=== PATIENT | female | born 1955 | race Caucasian/White ===

== ENCOUNTER 2017-04-04 10:08 | Observation (INO) | payer OTHER ==
[2017-04-04] VITALS (13 sets, daily range): BP systolic 117–145; BP diastolic 60–81; PULSE 68–96; RESP 18–26; Ht 154.9 cm; Wt 69.0 kg
[~2017-04-04] VITALS: Ht 154.9 cm; Wt 69.0 kg
[~2017-04-04 10:08] MED LIST: SEVOFLURANE 15 MIN ONE
[2017-04-04] MEDS ORDERED: METOCLOPRAMIDE 10 MG INJ IV PRN (12:30)
[2017-04-04] MEDS ORDERED: OXYCODONE/ACETAMINOPHEN (5/325) TAB PO PRN ×2 (12:30)
[2017-04-04] MEDS ORDERED: LABETALOL HCL 20MG INJ IV PRN (12:30)
[2017-04-04] MEDS ORDERED: HYDROmorphONE (0.2 MG/ML) 10ML SYG IV PRN ×3 (12:30)
[2017-04-04] MEDS ORDERED: MIDAZOLAM 1 MG/ML 2 ML INJ IV PRN (12:30)
[2017-04-04] MEDS ORDERED: ONDANSETRON 4 MG INJ IV PRN ×2 (12:30→15:00)
[2017-04-04] MEDS ORDERED: FENTAnyl 50 MCG/ML VIAL IV PRN ×2 (12:30)
[2017-04-04] MEDS ORDERED: DIPHENHYDRAMINE 50 MG INJ IV PRN ×2 (12:30→15:00)
[2017-04-04] MEDS ORDERED: MEPERIDINE 25 MG INJ IV PRN (12:30)
[2017-04-04] MEDS ORDERED: EPHEDrine SULFATE 50 MG/5 ML SYG IV PRN (12:30)
[2017-04-04] MEDS ORDERED: GLYCOPYRROLATE 0.4 MG INJ ONE (12:31)
[2017-04-04] MEDS ORDERED: MEPERIDINE 100 MG INJ ONE (12:31)
[2017-04-04] MEDS ORDERED: PROPOFOL 20 ML ONE (12:31)
[2017-04-04] MEDS ORDERED: CEFAZOLIN 1 GM INJ ONE (12:31)
[2017-04-04] MEDS ORDERED: ROCURONIUM 50 MG INJ ONE (12:31)
[2017-04-04] MEDS ORDERED: ONDANSETRON 4 MG INJ ONE (12:31)
[2017-04-04] MEDS ORDERED: METOCLOPRAMIDE 10 MG INJ ONE (12:31)
[2017-04-04] MEDS ORDERED: NEOSTIGMINE 3 MG/3 ML SYRINGE ONE (12:31)
[2017-04-04] MEDS ORDERED: SUCCINYLCHOLINE CHLORIDE 100 MG/5 ML SYG IV ONE (12:31)
[2017-04-04] MEDS ORDERED: LIDOCAINE 2% (SDV) 5 ML INJ ONE (12:31)
--- NOTE | 2017-04-04 12:59 | HPN ---
Date/Time of Note Date/Time of Note DATE: 04/04/17 TIME: 12:59 Interval H&P Admission Note Pt. seen H&P reviewed: No system changes MYRA AGUILAR MD Apr 04, 2017 12:59
[2017-04-04] MEDS ORDERED: DEXAMETHASONE 4 MG/ML 1 ML INJ ONE ×2 (13:46→13:47)
[2017-04-04] MEDS: CALCIUM CARBONATE 1.25 GM TAB PO SCH ×2 (15:00→15:30)
--- NOTE | 2017-04-04 15:14 | OPR ---
Date/Time of Note Date/Time of Note DATE: 04/04/17 TIME: 15:09 Operative Report Procedure Date: Apr 04, 2017 Preoperative Diagnosis Compressive thyroid goiter. Postoperative Diagnosis Same Operation Performed Total thyroidectomy Surgeon: MYRA AGUILAR MD Solar Installer Technician: EDGAR ACOSTA Anesthesia Type: general Estimated Blood Loss: 10 - 50 ml's Transfusion Required: no Specimens Thyroid gland Grafts/Implants: none Complications: no Pt Condition Post Procedure: stable Disposition: PACU Indications Compressive goiter. 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 Procedure Description Description of procedure: The patient was identified in the holding area. We had a discussion to confirm understanding of indications, risks, benefits, alternatives and postoperative care associated with the operation. Informed consent was signed. The patient was taken the operating room and placed supine on the operating table. General endotracheal anesthesia was achieved with a recurrent laryngeal nerve monitor capable endotracheal tube and recurrent laryngeal nerve monitoring was performed throughout the duration of the case. A shoulder roll was placed. The neck was prepped and draped in normal sterile fashion. A 15 blade was used to make a horizontal incision in a preexisting cervical crease. Subplatysmal flaps were elevated circumferentially. The midline raphe between the strap muscles was identified and vertically divided using monopolar cautery. The left sided strap muscles were elevated off the thyroid lobe. Dissection was fairly easy as there were no adhesions or signs of invasion.The superior pole of the thyroid gland was identified and bluntly dissected free to isolate the superior laryngeal nerve and the super pole vascular pedicle. The nerve was kept intact as the vessels were individually ligated and transected with the Liga-sure small jaw. In addition hemoclips were used to assure continued hemostasis. More inferiorly, the middle thyroid vein was taken after careful ligation and transection and dissection in the tracheoesophageal groove was used to identify the recurrent laryngeal nerve. It was followed superiorly to the cricothyroid joint and in this area the the superior parathyroid gland was identified. The parathyroid was carefully dissected laterally saving the pedicle after which overlying thyroid tissue was from its fibrous attachments to the surrounding soft tissues with the bipolar forceps. More inferior dissection was used to free the entirety of the recurrent laryngeal nerve. The inferior parathyroid and surrounding fat pad was at this point identified and swept laterally, again sparing the pedicle. Careful inspection and palpation of the level 6 manuel basin at this point revealed no adenopathy. The thyroidectomy commenced in a lateral to At this point, the contralateral thyroid lobectomy was performed in an exact similar sequence and fashion. Superior pole vascular pedicle, parathyroid glands, and the recurrent laryngeal nerve were all identified and addressed similar to the contralateral side. There was no mass or lymphadenopathy visible or palpable on thorough inspection of the central compartment. The wound was irrigated with copious amounts of saline. Valsalva was performed. There was no bleeding or oozing. A 3-0 Vicryl was used to reapproximate the strap muscles in midline after which the same suture was used to reapproximate the platysma in interrupted buried fashion. Running 4-0 Monocryl was used to reapproximate the skin. The patient tolerated the procedure well and was extubated, taken to PACU in stable condition. Complications: None MYRA AGUILAR MD Apr 04, 2017 15:14
[2017-04-04] MEDS: FENTAnyl 50 MCG/ML VIAL IV PRN ×2 (15:24→15:44)
[2017-04-04] MEDS: HYDROCODONE/APAP (5/325) TAB PO PRN (20:41)
[2017-04-04] MEDS: FAMOTIDINE 20 MG TAB PO SCH (22:37)
[2017-04-05 02:53] VITALS: BP 116/56; RESP 20
[2017-04-05 07:48] VITALS: BP 103/56; RESP 18
[2017-04-05] MEDS: FAMOTIDINE 20 MG TAB PO SCH ×2 (08:05→21:55)
[2017-04-05] MEDS: HYDROCODONE/APAP (5/325) TAB PO PRN ×2 (08:06→21:55)
[2017-04-05] MEDS: CALCIUM CARBONATE 1.25 GM TAB PO SCH (08:11)
--- NOTE | 2017-04-05 10:47 | PDOCDIS ---
Discharge Instructions CONDITION Patient Condition: Stable HOME CARE INSTRUCTIONS: Diet Instructions: RegularSpecial Diet: Regular Diet ACTIVITY: Activity Restrictions: Avoid heavy lifting Bathing Restrictions: Shower FOLLOW UP/APPOINTMENTS Follow-up Plan [place] next week. PCP next week. OTHER ORDERS: Other Orders: OTC Tums with calcium. Take two tabs orally three time daily. Follow up with PCP to collect blood sample for blood calcium level. SCHOOL/WORK RELEASE May return to School/Work on: Apr 19, 2017 May return to School/Work with: No Restrictions MYRA AGUILAR MD Apr 05, 2017 10:47
--- NOTE | 2017-04-05 11:04 | DS ---
Date/Time of Note Date/Time of Note DATE: 04/05/17 TIME: 11:03 Discharge Summary Admission/Discharge Info Admit Date/Time Apr 04, 2017 at 15:08 Discharge Date/Time Mar 9, PM Discharge Diagnosis Hypocalcemia, surgical. Patient Condition: Good Hospital Course Hypocalcemia post op. Will observe for reversal prior to DC today. Follow-up Plan TAWANA Kee one week. Primary Care Provider [facility], [place] Time spent on discharge: < 30 minutes Pending Labs Laboratory Tests Test 04/04/17 16:55 04/04/17 20:20 04/04/17 23:13 04/05/17 03:59 Calcium Level 9.1mg/dl (8.4-10.2) 9.0mg/dl (8.4-10.2) 8.5mg/dl (8.4-10.2) 8.2mg/dl (8.4-10.2) Test 04/05/17 09:50 Calcium Level 8.1mg/dl (8.4-10.2) MYRA KEE MD Apr 05, 2017 11:04
[2017-04-05] MEDS ORDERED: CALCIUM CARBONATE 500 MG CHEW TAB PO SCH (13:00)
[2017-04-05 14:10] VITALS: BP 108/59; RESP 18
[2017-04-05] MEDS: CALCIUM CARBONATE 500 MG CHEW TAB PO SCH ×2 (14:32→21:55)
[2017-04-05 20:20] VITALS: BP 108/57; RESP 18
[2017-04-06 02:44] VITALS: BP 105/58; RESP 16
[2017-04-06] MEDS: CALCIUM CARBONATE 500 MG CHEW TAB PO SCH ×2 (08:25→12:55)
[2017-04-06] MEDS: FAMOTIDINE 20 MG TAB PO SCH (08:28)
[2017-04-06 08:41] VITALS: BP_SYST 110; BP_SYST 195; BP_DIAS 100; BP_DIAS 57; RESP 22
== END 2017-04-06 15:05 | disposition home or self-care (01) ==
LOC: SDS 10:08 → REC 15:08 → MS2 16:00 → SDS 19:53
PROVIDERS: ADMIT Otolaryngology; ATTEND Otolaryngology
DX: E04.8 Other specified nontoxic goiter (principal); E83.51 Hypocalcemia
CPT/HCPCS: 60240; 82310; 88307; J0690; J1100; J2175; J2405; J2765; J3010; Z7500; Z7512; Z7610; G0378; J2710; J7999